=== PATIENT | female | born 1995 | race Caucasian/White ===

== ENCOUNTER 2023-01-24 01:51 | Emergency (ER) | payer OTHER ==
[~2023-01-24] VITALS: Ht 152.4 cm; Wt 90.7 kg
[2023-01-24] MEDS ORDERED: ANTI-DIARRHEAL2 MG PO (10:29)
[2023-01-24] MEDS ORDERED: REGLAN10 M1 PO (10:29)
== END 2023-01-24 06:01 | disposition home or self-care (01) ==
LOC: ED 01:51
DX: R11.10 Vomiting, unspecified (principal); R10.9 Unspecified abdominal pain; K30 Functional dyspepsia; Z79.899 Other long term (current) drug therapy

== ENCOUNTER 2023-01-24 08:26 | Emergency (ER) | payer OTHER ==
[~2023-01-24] VITALS: Ht 152.4 cm; Wt 90.7 kg
[2023-01-24 09:25] LABS: HEMATOCRIT 39.8 % (37.0-47.0); MEAN CELL VOLUME 88.1 fl (81.0-99.0); MEAN CORPUSCULAR HGB 28.3 pg (27.0-31.0); MEAN CORPUSCULAR HGB CONC 32.2 g/dl (33.0-37.0); MEAN PLATELET VOLUME 12.9 fl (9.6-12.3); PLATELET COUNT AUTOMATED 178 10*3/uL (130-400); RED BLOOD COUNT 4.52 10*6/uL (4.10-5.10); RED CELL DISTRI WIDTH 13.2 % (0-14.5); WHITE BLOOD COUNT 10.1 10*3/uL (4.8-10.8)
[2023-01-24 09:31] LABS: MANUAL DIFF REFLEX YES
[2023-01-24 09:48] LABS: ALKALINE PHOSPHATASE 79 U/L (46-116); BUN 14 mg/dl (9-23); CHLORIDE 109 mmol/L (98-107); LIPASE 31 U/L (12-53); POTASSIUM 3.7 mmol/L (3.4-5.1); SGPT/ALT 12 U/L (10-49); TOTAL PROTEIN 7.3 gm/dL (6.0-8.0)
[2023-01-24 09:59] LABS: BURR CELLS FEW; PLATELET SUFFICIENCY NORMAL (NORMAL); TOTAL CELLS COUNTED 100 #CELLS; TOXIC GRANULATION SLIGHT
[2023-01-24] MEDS ORDERED: ANTI-DIARRHEAL2 MG PO (10:29)
[2023-01-24] MEDS ORDERED: REGLAN10 M1 PO (10:29)
== END 2023-01-24 10:38 | disposition home or self-care (01) ==
LOC: ED 08:26
PROVIDERS: Emergency Medicine
DX: R11.2 Nausea with vomiting, unspecified (principal); R19.7 Diarrhea, unspecified; R10.10 Upper abdominal pain, unspecified

== ENCOUNTER 2023-04-11 13:33 | Emergency (ER) | payer MEDICAID ==
[~2023-04-11] VITALS: Ht 152.4 cm; Wt 87.1 kg
[~2023-04-11 13:33] MED LIST: ANTI-DIARRHEAL2 MG PO; REGLAN10 M1 PO
[2023-04-11 14:10] LABS: BASO % 0.4 % (0.0-1.0); EOS # 0.1 10*3/uL (0.0-0.4); EOS % 1.5 % (1.0-4.0); HEMATOCRIT 37.9 % (37.0-47.0); LYMPH # 2.2 10*3/uL (1.3-4.4); LYMPH % 32.6 % (27.0-41.0); MEAN CELL VOLUME 88.8 fl (81.0-99.0); MEAN CORPUSCULAR HGB 28.8 pg (27.0-31.0); MEAN CORPUSCULAR HGB CONC 32.5 g/dl (33.0-37.0); MEAN PLATELET VOLUME 11.7 fl (9.6-12.3); MONO # 0.5 10*3/uL (0.1-1.0); MONO % 7.7 % (3.0-9.0); NEUT # 3.9 10*3/uL (2.3-7.9); NEUT % 57.5 % (47.0-73.0); PLATELET COUNT AUTOMATED 208 10*3/uL (130-400); RED BLOOD COUNT 4.27 10*6/uL (4.10-5.10); RED CELL DISTRI WIDTH 13.1 % (0-14.5); WHITE BLOOD COUNT 6.8 10*3/uL (4.8-10.8)
[2023-04-11 14:33] LABS: ALKALINE PHOSPHATASE 80 U/L (46-116); BUN 7 mg/dl (9-23); CHLORIDE 108 mmol/L (98-107); POTASSIUM 3.9 mmol/L (3.4-5.1); SGPT/ALT 12 U/L (10-49)
[2023-04-11] MEDS ORDERED: REGLAN10 M1 PO (15:14)
[2023-04-11] MEDS ORDERED: IBU800 M2 PO (15:14)
== END 2023-04-11 15:34 | disposition home or self-care (01) ==
LOC: ED 13:33
PROVIDERS: Emergency Medicine
DX: R51.9 Headache, unspecified (principal); Z98.890 Other specified postprocedural states; F17.290 Nicotine dependence, other tobacco product, uncomplicated

== ENCOUNTER 2023-04-13 15:33 | Emergency (ER) | payer MEDICAID ==
[~2023-04-13] VITALS: Ht 152.4 cm; Wt 81.6 kg
[~2023-04-13 15:33] MED LIST changes: +IBU800 M2 PO
[2023-04-13] MEDS ORDERED: ESCITALOPRAM OX20 MG PO (16:08)
== END 2023-04-13 17:35 | disposition home or self-care (01) ==
LOC: ED 15:33
DX: F41.9 Anxiety disorder, unspecified (principal); Z98.890 Other specified postprocedural states